=== PATIENT | male | born 1980 | race Caucasian/White ===

== ENCOUNTER 2022-08-14 13:50 | Emergency (ER) | payer OTHER, SELFPAY ==
[2022-08-14 13:58] VITALS: BP 160/91; PULSE 92; RESP 16; TEMP 36.9; O2SAT 99; BMI 26.5
--- NOTE | 2022-08-14 14:14 | ED.GENADULT ---
HPI - General Adult General Time Seen by Provider: 14:14 Date Seen: 08/14/22 Chief complaint: Back Injury/Pain Stated complaint: Back Pain Time Seen by Provider: 08/14/22 13:52 Source: patient Mode of arrival: ambulatory Limitations: physical limitation History of Present Illness HPI narrative: Patient is a 42 year white male has had history of back problems, he is pulling some weeds yesterday and developed a strain of his low back and tightness had trouble walking walks in a flexed position. No bowel or bladder incontinence fever chills perineal numbness. No lower extremity symptoms. He has not had surgery injections on his back. He has done no recent physical therapy Related Data Previous Rx's Medication Instructions Recorded celecoxib 200 mg capsule (Celebrex) 200 mg PO DAILY 10 days #10 caps 08/14/22 methylprednisolone 4 mg tablets in See Rx Instructions PO .COMPLEX 08/14/22 a dose pack (Medrol (Shukri)) #21 ea Allergies Allergy/AdvReac Type Severity Reaction Status Date / Time Sulfa (Sulfonamide Allergy Verified 08/14/22 14:03 Antibiotics) Review of Systems Status of ROS: Reports: 6 or more systems reviewed and unremarkable except as noted in History and below Exam Narrative: Exam Narrative: Objective: Patient's vital signs look slightly elevated blood pressure otherwise unremarkable He is alert orient x3 No palpable tenderness to his low back except along his lower lumbar sacral area mild paravertebral muscle tenderness No strength or sensation changes in lower extremities, he has were able to walk Const: Vital Signs, click to edit/add: Vital Signs - 24 hr 08/14/22 13:58 Temperature 98.5 F Pulse Rate [Pulse Oximeter] 92 Respiratory Rate 16 Blood Pressure [Ri ght Upper Arm] 160/91 H Pulse Oximetry 99 Oxygen Delivery Me thod Room Air Course Vital Signs Vital signs: Initial Vital Signs Temperature 98.5 F 08/14/22 13:58 Temperature Source Temporal Artery Scan 08/14/22 13:58 Pulse Rate 92 08/14/22 13:58 Pulse Rhythm Regular 08/14/22 13:58 Pulse Strength 3+ Normal 08/14/22 13:58 Respiratory Rate 16 08/14/22 13:58 Blood Pressure 160/91 H 08/14/22 13:58 Blood Pressure Mean 114 08/14/22 13:58 Blood Pressure Position Supine 08/14/22 13:58 Pulse Oximetry 99 04/12/23 13:58 Oxygen Delivery Method Room Air 08/14/22 13:58 Vital Signs Temperature 98.5 F 08/14/22 13:58 Pulse Rate 92 08/14/22 13:58 Respiratory Rate 16 08/14/22 13:58 Blood Pressure 160/91 H 08/14/22 13:58 Pulse Oximetry 99 08/14/22 13:58 Oxygen Delivery Method Room Air 08/14/22 13:58 Temperature 98.5 F 08/14/22 13:58 Pulse Rate 92 08/14/22 13:58 Respiratory Rate 16 08/14/22 13:58 Blood Pressure 160/91 H 08/14/22 13:58 Pulse Oximetry 99 08/14/22 13:58 Oxygen Delivery Method Room Air 08/14/22 13:58 Medical Decision Making MDM Narrative Medical decision making narrative: [age] year old white male with history of back problems presents with back overuse strain. He has no evidence of radicular symptoms, no bowel or bladder symptoms fever chills perineal numbness. At this point I think we can safely give him an injection of medications such as morphine 7.5 mg IM to help muscle relaxation and pain. He can rest engage in light activity, ice to the back and regular basis, off work for 3 days in light activity. Will give a Medrol Dosepak and Celebrex 200 mg daily for the next 10 days as well. I would recommend he consider a spinal strengthening program such as [facility] in [place] when he ring proves. He can recheck with regular doctor as needed, return to ED problems or concerns. Discharge Plan Discharge Clinical Impression: Strain of lumbar region Patient Disposition: Home w/ Parent or Adult Condition: Stable Instructions: Back Pain (ED) Additional Instructions: Light activity, position of comfort, ice to the back 10-15 minutes 4 to 5 times a day for the next 3-4 days. Light activity for 3 days. Medrol Dosepak and Celebrex as prescribed. No driving or alcohol or ladders today as you got a shot of a narcotic medication. Recommend you consider the [facility] low back strengthening program in [place] when you recover. Activity Level: Light activity Discharge Diet: Regular Prescriptions: New methylprednisolone [Medrol (Shukri)] 4 mg tablets,dose pack See Rx Instructions .ROUTE .COMPLEX Qty: 21 0RF Rx Instructions: orally per package directions celecoxib [Celebrex] 200 mg capsule 200 mg PO DAILY 10 Days Qty: 10 2RF Stand Alone Forms: [facility] Info Instructions
[2022-08-14] MEDS: MORPHINE 10 MG/ML inj 7.5 MG IM (14:38)
== END 2022-08-14 14:51 | disposition home or self-care (01) ==
PROVIDERS: Emergency Provider Family Medicine
DX: S39.012A Strain of muscle, fascia and tendon of lower back, initial encounter (principal)
CPT/HCPCS: 96372; 99283; J2270

== ENCOUNTER 2023-09-25 16:20 | Outpatient (CLI) | payer OTHER, SELFPAY | END 2023-09-25 16:21 | disposition home or self-care (01) | LOC: NFLDREF 10-15 08:30 | PROVIDERS: Visit Provider Nurse Practitioner Family | DX: R30.0 Dysuria (principal); M54.9 Dorsalgia, unspecified; M62.838 Other muscle spasm | CPT/HCPCS: 87086 ==